=== PATIENT | female | born 1985 | race Asian ===

== ENCOUNTER 2017-07-31 09:03 | Inpatient (IN) | payer SELFPAY ==
[~2017-07-31] VITALS: Ht 160 cm; Wt 52.6 kg
[2017-07-31] MEDS ORDERED: OXYTOCIN/0.9 % SODIUM CHLORIDE 1,000 ML IV SCH (09:24)
[2017-07-31] MEDS ORDERED: LR 1,000 ML IV ONE (09:24)
[2017-07-31] MEDS ORDERED: LR 1,000 ML IV SCH (09:24)
[2017-07-31] MEDS ORDERED: NALBUPHINE HCL 10 MG/ML AMP IM PRN (09:30)
[2017-07-31] MEDS ORDERED: NALBUPHINE HCL 10 MG/ML AMP IVP PRN (09:30)
[2017-07-31] MEDS ORDERED: TERBUTALINE SULFATE 1 MG/ML VIAL SUBCUT ONE (09:30)
[2017-07-31 10:09] LABS: BASOPHILS % (AUTO) 0.5 % (0.0-2.0); EOSINOPHILS % (AUTO) 0.6 % (0.0-4.0); HEMATOCRIT 41.8 % (36-48); HEMOGLOBIN 14.1 g/dL (12.0-16.0); LYMPHOCYTES # (AUTO) 1.5 K/uL (1.0-5.5); LYMPHOCYTES % (AUTO) 22.7 % (20.5-51.5); MEAN CORPUSCULAR HEMOGLOBIN 32 pg (27-31); MEAN CORPUSCULAR HGB CONC 34 % (32-36); MEAN CORPUSCULAR VOLUME 96 fL (79.0-98.0); MONOCYTES # (AUTO) 0.3 K/uL (0.0-1.0); MONOCYTES % (AUTO) 4.6 % (1.7-9.3); NEUTROPHILS # (AUTO) 4.7 K/uL (1.8-7.7); NEUTROPHILS % (AUTO) 71.6 % (40.0-70.0); PLATELET COUNT (AUTO) 227 K/uL (130-430); RED BLOOD CELL COUNT(AUTO) 4.36 MIL/uL (4.2-6.2); RED CELL DISTRIBUTION WIDTH 13.2 % (9.0-15.0); WHITE BLOOD COUNT (AUTO) 6.5 K/uL (4.8-10.8)
[2017-07-31] MEDS ORDERED: ROPIVACAINE 0.2% 100 ML ONE ×3 (10:55→21:02)
[2017-07-31] MEDS ORDERED: fentaNYL CITRATE/PF 100 MCG/2 ML AMP ONE (10:55)
[2017-07-31] MEDS ORDERED: LR 500 ML IV ONE (12:51)
[2017-07-31] MEDS ORDERED: FENT2mCg/mL-ROPIVA0.2%/NS EPID 150 ML EP SCH (13:00)
[2017-07-31 20:19] VITALS: BP_SYST 109
[2017-07-31] MEDS ORDERED: AMPICILLIN SODIUM 2 GM in NS 100 ML IV ONE (20:45)
[2017-07-31] MEDS ORDERED: AMPICILLIN SODIUM 2 GM VIAL ONE (20:47)
[2017-08-01] MEDS ORDERED: IBUPROFEN 600 MG TABLET ONE (01:19)
[2017-08-01] MEDS ORDERED: OXYTOCIN/0.9 % SODIUM CHLORIDE 1,000 ML IV ONE (02:11)
[2017-08-01] MEDS ORDERED: OXYTOCIN/0.9 % SODIUM CHLORIDE 1,000 ML IV SCH (02:11)
[2017-08-01] MEDS ORDERED: WITCH HAZEL LEAF 1 MED.PAD MED.PAD TP PRN (02:15)
[2017-08-01] MEDS ORDERED: LANOLIN 7 GM OINT. TP PRN (02:15)
[2017-08-01] MEDS ORDERED: ANUSOL 1 EA SUPP.RECT (PREPARATION H) RC PRN (02:15)
[2017-08-01] MEDS ORDERED: DIPH-TET-PERTUS Vaccine 0.5 ML VIAL (ADACEL) I.M. PRN (02:15)
[2017-08-01] MEDS ORDERED: HYDROCORTISONE 0.5%, 28.35 GM TOPICAL CREAM TP PRN (02:15)
[2017-08-01] MEDS ORDERED: RHO(D) IMMUNE GLOBULIN/MALTOSE 1500 UNITS/1.3 ML (WINHRO) IM PRN (02:15)
[2017-08-01] MEDS ORDERED: DERMOPLAST SPRAY TP PRN (02:15)
[2017-08-01] MEDS ORDERED: MEASLES,MUMPS&RUBELLA VACC/PF 12500 UNIT/0.5 ML VIAL SUBQ PRN (02:15)
[2017-08-01] MEDS ORDERED: DOCUSATE SODIUM 100 MG CAPSULE PO PRN (02:15)
[2017-08-01] MEDS ORDERED: METHYLERGONOVINE MALEATE 0.2 MG TABLET PO PRN (02:15)
[2017-08-01] MEDS ORDERED: OXYCODONE/ACETAMINOPHEN 5-325 TABLET PO PRN (02:45)
[2017-08-01] MEDS ORDERED: HYDROcodone/ACETAMIN 5-325 MG TAB (NORCO/ VICODIN) PO PRN (02:45)
[2017-08-01] MEDS: IBUPROFEN 600 MG TABLET PO SCH ×2 (05:50→18:00)
[2017-08-01] MEDS: OXYCODONE/ACETAMINOPHEN 5-325 TABLET PO PRN (16:03)
[2017-08-01] MEDS ORDERED: TEMAZEPAM 15 MG CAPSULE PO PRN (21:00)
[2017-08-02] MEDS: IBUPROFEN 600 MG TABLET PO SCH ×2 (05:48)
[2017-08-02 06:01] LABS: HEMATOCRIT 33.9 % (36-48); HEMOGLOBIN 11.4 g/dL (12.0-16.0)
[2017-08-02] MEDS: OXYCODONE/ACETAMINOPHEN 5-325 TABLET PO PRN (08:49)
== END 2017-08-02 14:30 | disposition home or self-care (01) | DRG 775 ==
LOC: OBSVTOIN 09:03 → SPU 09:03
PROVIDERS: ADMIT Obstetrics & Gynecology; ATTEND Obstetrics & Gynecology
PROC: 10E0XZZ Delivery of Products of Conception, External Approach (ICD-10-PCS; principal; 2017-07-31)
PROC: 0W8NXZZ Division of Female Perineum, External Approach (ICD-10-PCS; 2017-07-31)
PROC: 3E0S3BZ Introduction of Anesthetic Agent into Epidural Space, Percutaneous Approach (ICD-10-PCS; 2017-07-31)
PROC: 00HU33Z Insertion of Infusion Device into Spinal Canal, Percutaneous Approach (ICD-10-PCS; 2017-07-31)
DX: O42.92 Full-term premature rupture of membranes, unspecified as to length of time between rupture and onset of labor (principal); O24.429 Gestational diabetes mellitus in childbirth, unspecified control; E06.3 Autoimmune thyroiditis; O99.284 Endocrine, nutritional and metabolic diseases complicating childbirth; Z3A.39 39 weeks gestation of pregnancy; Z37.0 Single live birth
CPT/HCPCS: 36415; 82962; 85018-TC; 85025; 86592; 86886; 86900; 86901; J0290; J2300; J2590; J2795; J3010; J7120